=== PATIENT | male | born 1950 | race Caucasian/White ===

== ENCOUNTER → 2019-04-01 | Outpatient (CLI) | payer OTHER, MEDICARE ==
[2019-04-01 08:00] LABS: HEMATOCRIT 45.7 % (42.0-52.0); HEMOGLOBIN 15.4 gm/dL (14.0-18.0); MCH 30.6 pg (26.0-34.0); MCHC 33.6 g/dL (28.0-37.0); MCV 91.1 fL (80.0-100.0); RBC 5.02 mil/uL (4.50-6.00); RDW 12.7 % (10.5-14.5); WBC 6.4 thou/uL (4.0-11.0)
[2019-04-01 08:14] LABS: ALBUMIN 3.7 g/dL (3.4-5.0); CALCIUM 9.3 mg/dL (8.5-10.1); CREATININE 1.2 mg/dL (0.7-1.3); POTASSIUM 4.7 mmol/L (3.5-5.1); TOTAL BILIRUBIN 0.4 mg/dL (<0.1-1.0); TOTAL PROTEIN 6.6 g/dL (6.4-8.2)
== END ==
LOC: CAT 07:31
PROVIDERS: Internal Medicine Cardiovascular Disease
DX: I48.91 Unspecified atrial fibrillation (principal); I25.10 Atherosclerotic heart disease of native coronary artery without angina pectoris; K76.89 Other specified diseases of liver; K44.9 Diaphragmatic hernia without obstruction or gangrene

== ENCOUNTER → 2019-04-07 | Outpatient (CLI) | payer OTHER, MEDICARE ==
[~2019-04-07] MED LIST: COENZYME Q10100 MG PO; ELIQUIS5 MG PO; FISH OIL 1,001000 M3 PO; FLECAINIDE ACET50 M1 PO; HYDRALAZINE 5050 MG PO; LIPITOR40 MG PO; LOTREL 10-40 M1 EACH PO; PREVACID30 MG PO; TOPROL XL50 MG PO; VITAMIN D1000 UNI2 PO
--- NOTE | 2019-04-10 20:30 | SLE ---
[facility] [place] [address] POLYSOMNOGRAPHY STUDY Name: MELISSA CALVILLO Room #: REG [facility].#: [id number] Admission: 04/07/19 Attend Phys: Elmer Titus MD Discharge: Date of : 52 Report #: [id number] THIS REPORT FOR: //name// CC: Elmer Ludwig M.D. DATE OF SERVICE: 04/07/2019 SLEEP STUDY DATE OF STUDY: 04/07/2019. ATTENDING PHYSICIAN: Dr. Asim Ludwig. The patient is 68 years old who, who weighs 205 pounds with a BMI of 28.6. The patient's Hesston score was 5. The patient underwent diagnostic sleep study performed at [facility]. During the night study, the patient spent 364 minutes in bed and slept for 255 minutes with a sleep efficiency of 70%. Sleep latency was 18.7 minutes with a REM latency of 92 minutes. Sleep architecture showed increased stage 1 and stage 2 sleep, reduced slow wave and reduced REM sleep. During the night of the study, the patient had 14 obstructive apneas, 34 mixed apneas, and 13 central apneas along with 12 hypopneas. The patient's apnea hypopnea index was 17.2 per hour with a REM index of 13.8 per hour and a supine index of 63 per hour. EKG monitoring revealed an average heart rate of 70 beats per minute. The rhythm appeared to be atrial flutter fib pattern with a maximum heart rate of 109 beats per minute. No clinically significant PLM seen. Nocturnal oximetry study revealed an average oxygen saturation of 91% with a lowest of 81%. Thirty minutes were spent in oxygen saturation of less than 89%. The patient did meet the split night criteria for CPAP initiation, but it was late in the night. As a result, CPAP could not be initiated. IMPRESSION: 1. Moderate sleep apnea-hypopnea syndrome with worsening during supine sleep. Total AHI of 17.2 per hour with a supine AHI of 63 per hour. [facility] [address] [place] [address] POLYSOMNOGRAPHY STUDY Name: RAJINDERMELISSA Room #: REG ROLF [place]ering#: [id number] Admission: 04/07/19 Attend Phys: Elmer Titus MD Discharge: Date of : 52 Report #: [id number] 2. Nocturnal hypoxia secondary to obstructive sleep apnea. 3. Abnormal EKG consistent with atrial flutter/ fib pattern. RECOMMENDATIONS: 1. The patient would benefit from treatment of sleep apnea with CPAP. This can be done as an in-lab versus home auto-titration study. 2. Once the patient is optimally treated with CPAP, then follow up in 4-6 weeks to assess compliance with CPAP and to document clinical improvement. 3. Weight loss to the ideal body weight is recommended. 4. Avoid MANAGER SECONDARY depressants. 5. Avoid supine sleep. 6. Cautioned regarding driving until symptoms of sleep apnea resolve with the use of CPAP. 7. Follow up with Cardiology regarding abnormal EKG if clinically indicated. <ELECTRONICALLY SIGNED> By: Elmer Titus MD 04/10/19 2030 1755 1814 Elmer Titus MD /nt
== END ==
LOC: SLEEPLAB
DX: G47.30 Sleep apnea, unspecified (principal); G47.34 Idiopathic sleep related nonobstructive alveolar hypoventilation

== ENCOUNTER → 2019-04-12 | Outpatient (CLI) | payer OTHER, MEDICARE ==
[~2019-04-12] VITALS: Ht 180.3 cm; Wt 95.3 kg
[~2019-04-12] MED LIST changes: -PREVACID30 MG PO
[2019-04-12 07:10] VITALS: BP 143/86
--- NOTE | 2019-04-12 09:01 | TEE ---
[place] [address] [facility] 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 Type of Sedation : Conscious Sedation Sedation was administered by Rhina DEJESUS. Sedation was achieved intravenously with: Versed (4 mg) Fentanyl (150 mcg) Transesophageal probe was inserted and advanced into esophagus without difficulty by Wenceslao Fields MD. Echo enhancement indication: R/O Septal defect. Echo enhancement agent administered: Agitated Saline The KIM was performed without complications. Throughout the procedure, the blood pressure, pulse oximetry, cardiac rhythm, and rate were monitored. The patient tolerated the procedure without adverse effects. Recovery from conscious sedation was uneventful and vital signs were stable. Left Ventricle [facility] [address] [place] [address] TRANSESOPHAGEAL ECHOCARDIOGRAM Name: MELISSA CALVILLO Room #: REG CL [facility].#: [id number] Admission: 04/12/19 Attend Phys: Wenceslao Fields, Discharge: Date of : 52 Report #: [id number] The left ventricle is normal size. There is normal LV segmental wall motion. There is normal left ventricular wall thickness. The left ventricular systolic function is normal. The left ventricular ejection fraction is within the normal range. LVEF is 55-60%. Right Ventricle The right ventricle is normal size. The right ventricular systolic function is normal. Atria Left atrium is dilated. No thrombus is visualized in the left atrium or appendage. No shunting by contrast bubble injection Right atrium is dilated. Aortic Valve The aortic valve is normal in structure. No aortic regurgitation is present. There is no aortic valvular stenosis. Mitral Valve The mitral valve is normal in structure. Mild mitral regurgitation. No evidence of mitral valve stenosis. Tricuspid Valve The tricuspid valve is normal in structure. Mild tricuspid regurgitation. Pulmonic Valve The pulmonary valve is normal in structure. There is no pulmonic valvular regurgitation. Great Vessels The aortic root is normal in size. Mild aortic atherosclerosis IVC is normal in size and collapses >50% with inspiration. Pericardium There is no pericardial effusion. <Conclusion> The left ventricular systolic function is normal. There is normal LV segmental wall motion. LVEF is 55-60%. Both atria are dilated. No thrombus is visualized in the left atrium or appendage. No shunting by contrast bubble injection The aortic valve is normal in structure. No aortic regurgitation or [facility] [address] [place] [address] TRANSESOPHAGEAL ECHOCARDIOGRAM Name: MELISSA CALVILLO Room #: REG CL [facility].#: [id number] Admission: 04/12/19 Attend Phys: Wenceslao Fields, Discharge: Date of : 52 Report #: [id number] stenosis. The mitral valve is normal in structure. Mild mitral regurgitation. There is no pericardial effusion. <ELECTRONICALLY SIGNED> By: Wenceslao Fields MD, [facility] 04/12/19900 0 0 Wenceslao Fields MD, [facility] /INF
== END | disposition home or self-care (01) ==
LOC: CATH
DX: I48.91 Unspecified atrial fibrillation (principal); I08.1 Rheumatic disorders of both mitral and tricuspid valves; I70.0 Atherosclerosis of aorta; I42.9 Cardiomyopathy, unspecified; I10 Essential (primary) hypertension; E78.5 Hyperlipidemia, unspecified; K21.9 Gastro-esophageal reflux disease without esophagitis; Z98.890 Other specified postprocedural states; Z79.01 Long term (current) use of anticoagulants; Z79.899 Other long term (current) drug therapy

== ENCOUNTER 2019-04-20 06:28 | Inpatient (IN) | payer OTHER, MEDICARE ==
[~2019-04-20] VITALS: Ht 180.3 cm; Wt 96.7 kg
[2019-04-20] VITALS (33 sets, daily range): BP systolic 101–151; BP diastolic 46–91
[~2019-04-20 06:28] MED LIST changes: -FISH OIL 1,001000 M3 PO
[2019-04-20 07:18] LABS: ABSOLUTE NEUTROPHILS 3.8 thou/uL (1.4-8.2); BASOPHILS 1.2 % (0.0-2.0); EOSINOPHILS 1.8 % (0.0-3.0); HEMATOCRIT 44.7 % (42.0-52.0); LYMPHOCYTES 19.3 % (24.0-44.0); MCH 30.4 pg (26.0-34.0); MCHC 33.6 g/dL (28.0-37.0); MCV 90.5 fL (80.0-100.0); MONOCYTES 11.2 % (1.0-8.0); PLATELET COUNT 282 thou/uL (150-400); POLYS 66.5 % (36.0-66.0); RBC 4.94 mil/uL (4.50-6.00); RDW 13.4 % (10.5-14.5); WBC 5.7 thou/uL (4.0-11.0)
[2019-04-20 07:23] LABS: CREATININE 1.3 mg/dL (0.7-1.3); POTASSIUM 4.2 mmol/L (3.5-5.1)
[2019-04-20 07:29] LABS: ALBUMIN 3.8 g/dL (3.4-5.0); TOTAL BILIRUBIN 0.6 mg/dL (<0.1-1.0)
[2019-04-20 07:36] LABS: APTT 30.3 Seconds (24.5-32.8); PROTIME 10.7 Seconds (9.3-11.4)
--- NOTE | 2019-04-20 14:33 | NUR ---
68 YEAR OLD MALE ADMITTED TO ICU ROOM 236 POST ABLATION FOR AFIB WITH SINUS PAUSES, JUNCTIONAL RHYTHM AND SB AT 1400. ASSESSMENT COMPLETED.
--- NOTE | 2019-04-20 18:20 | NUR ---
PT IS DROWSY AND SLEEPING WITH SEDATION DRUGS OF PRECEDIX AND VERSED. REAMAINS CALM WITH THOSE. LUNGS ARE COARSE REMAINS ON THE VENT TODAY. ABDOMEN IS ROUND BOWEL SOUNDS HYPOACTIVE. NO BM TODAY. HOLLIDAY TO DD WITH LUIS URINE PRESENT. BARIER CREAM TO COCCYX. BILATERAL WRIST RESTRAINTS IN PLACE WITH NURSING CARE SO NOT TO COMPROMIS MEDICAL TREATEMENT. WILL CONTINUE ONGOING NURSING SUPPORT NEEDED AT THIS TIME
--- NOTE | 2019-04-20 19:00 | NUR ---
PATIENT PROGRESSING, GROIN SITE INTACT WITH NEURO VASCULAR STATUS OF RLE INTACT. MONITOR SHOWS NSR WITH RARE PAC NO PAUSES NOTED. PATIENT UPDATED TO THE POC AND REASSURANCE GIVEN.
[2019-04-21] VITALS (10 sets, daily range): BP systolic 104–174; BP diastolic 50–81
--- NOTE | 2019-04-21 05:15 | NUR ---
A0X4. ON 2L NC. NO SIGNS OF DISTRESS AT REST. MEDICATED FOR PAIN RELEIF. AFEBRILE. VSS. RIGHT GROIN SITE DRESSING C/D/I. NO BLEEDING OR HEMATOMA NOTED ON RIGHT GROIN. UP WITH ISABELBY ASSIST. PT CONTINUES TO PROGRESS TOWARDS GOAL. WILL CONTINUE TO MONITOR.
[2019-04-21] MEDS ORDERED: FISH OIL 1,001000 M3 PO (07:57)
[2019-04-21] MEDS ORDERED: PREVACID30 MG PO (10:22)
--- NOTE | 2019-04-21 10:45 | NUR ---
PT DISCHARGED TAKEN OUT VIA WHEEL CHAIR AND VERBALIZES UNDERSTANDING OF DISCHARGE INSTRUCTIONS GIVEN TO PT. SPOUSE WITH PT FOR SUPPORT. NO ISSUES OR CONCERNS NOTED AT THIS TIME. WILL FOLLOW UP ON HIS APPOINTMENTS PER CARDIOLOGY
--- NOTE | 2019-04-21 17:35 | EKG ---
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 : 1950 Requested By: Michelle Hernandez Order Number: [id number] MD: Wenceslao Fields Measurements Intervals [place] Rate: 64 P: 67 SC: 140 QRS: 27 QRSD: 97 T: 87 QT: 526 QTc: 543 Interpretive Statements Sinus rhythm Atrial premature complex RSR' in V1 or V2, right VCD Nonspecific ST and T wave abnormality Prolonged QT interval No previous ECG available for comparison Electronically Signed On 04-21-2019 17:35:32 MANGLE CATCHER by Wenceslao Fields [email or web address] <ELECTRONICALLY SIGNED> By: Wenceslao Fields MD, [facility] 04/21/19 5713 0710 0710 Wenceslao Fields MD, [facility] /EPI
--- NOTE | 2019-04-22 11:23 | D ---
[facility] [place] [address] DISCHARGE SUMMARY Name: MELISSA CALVILLO Room #: 236-P [facility] IN M.R.#: [id number] Admission: 04/20/19 Attend Phys: Yandel Mcqueen MD Discharge: 04/21/19 Date of : 52 Report #: [id number] THIS REPORT FOR: //name// CC: Asim Mcqueen [facility] Physician staff DISCHARGE DIAGNOSES: 1. Atrial fibrillation. 2. Sick sinus syndrome. PROCEDURES PERFORMED: AFib ablation. HISTORY: The patient is a 68-year-old with history of recurrent AFib despite antiarrhythmic drugs, here for an ablation. He underwent successful AFib ablation with no complications. However, after cardioversion, he did have a prolonged pause, which required me to pace the patient for several minutes. He also had a long sinus node recovery time anywhere from 3-6 seconds. Prior to extubating him, I placed him on dopamine, which got his rates from 30 beats per minute up to 60 beats per minute and once he was extubated, his heart rate improved and we weaned him off of dopamine. However, given the evidence of sick sinus syndrome, I decided to place him in the ICU for closer monitoring, but no temporary wire was required. HOSPITAL COURSE: The patient was monitored in the ICU overnight and did very well. His heart rates remained perfect throughout the night without any pauses. On the day of discharge, he was doing well. He denied any fevers or chills, chest pain or shortness of breath. PHYSICAL EXAMINATION: GENERAL: He was in no acute distress. HEART: Regular rate and rhythm with no murmurs, rubs or gallops. LUNGS: Clear to auscultation. EXTREMITIES: His groins showed no significant bruising or hematoma. As mentioned above, on telemetry his rhythm was stable. As such, he was deemed stable for discharge home and no need for pacemaker implantation would be required during this hospitalization. As such, he will go home on his Eliquis. We will hold off on resuming beta ritesh therapy and flecainide therapy. He will follow up in 1 week with my nurse practitioner. We discussed that if he starts having recurrent atrial fibrillation and antiarrhythmic drugs are warranted, then we may need to discuss placement of a pacemaker prior to that, but hopefully with the ablation, he would not have any more AFib and we can stay [facility] [address] [place] [address] DISCHARGE SUMMARY Name: MELISSA CALVILLO Room #: 236-P DIS IN M.R.#: [id number] Admission: 04/20/19 Attend Phys: Yandel Mcqueen MD Discharge: 04/21/19 Date of : 52 Report #: [id number] off of metoprolol and antiarrhythmic drugs for the foreseeable future. Discharge instructions were reviewed. <ELECTRONICALLY SIGNED> By: Yandel Mcqueen MD 04/22/19 1123 0829 0837 Yandel Mcqueen MD /lisa
--- NOTE | 2019-04-28 13:41 | P ---
[facility] [place] [address] [place] [address] PROCEDURE REPORT Name: MELISSA CALVILLO Room #: 236-P [facility] IN M.R.#: [id number] Admission: 04/20/19 Attend Phys: Yanedl Mcqueen MD Discharge: 04/21/19 Date of : 52 Report #: [id number] THIS REPORT FOR: //name// CC: Asim Mcqueen [facility] Physician staff PREOPERATIVE DIAGNOSIS: Atrial fibrillation. POSTOPERATIVE DIAGNOSIS: Atrial fibrillation. PROCEDURES PERFORMED: 1. Atrial fibrillation ablation, CPT code 12830. 2. Program stimulation pacing after IV drug infusion, CPT code 62030. 3. 3D mapping, CPT code 16661. 4. Intracardiac echo, CPT code 98014. 5. Focal ablation, CPT code 74928. HISTORY: The patient is a 68-year-old with history of recurrent AFib despite antiarrhythmic drugs. He is here for ablation. ANESTHESIA: The patient underwent general anesthesia with no anesthesia related complications. DESCRIPTION OF PROCEDURE: The patient underwent informed consent. We discussed the details of the procedure including the risks, which include but not limited to bleeding, infection, vascular damage and cardiac perforation. He understood these risks and is willing to proceed. The patient was brought to the EP laboratory in a fasting and sedated state, prepped and draped in a sterile fashion. I obtained access to the right femoral vein x 3, placing an 8, 9 and 7-Australian short sheath using the modified Seldinger technique. At baseline, the patient was in atrial fibrillation with a ventricular cycle length of 745 milliseconds, QRS duration 88 milliseconds, QT interval 385 milliseconds. Under fluoroscopy, a decapolar catheter was placed in the coronary sinus and ICE catheter was placed into the right atrium. Next, using intracardiac ultrasound, a 3D geometry of the left atrium was created using [employer]. This was merged with his cardiac CT scan. He had evidence of 2 left and 2 right pulmonary veins. The patient was then systemically heparinized and transseptal was performed using a Valier needle and SL1 sheath. This was straightforward and I placed the wire into the left superior pulmonary vein and then exchanged for the cryo sheath. Cryoballoon was placed in the left atrium. Next, I started by isolating the left superior pulmonary vein. This vein underwent two 4-minute freezes and the vein isolated within 30 seconds of the second freeze. I then turned my attention to the left inferior pulmonary vein. This vein also underwent two 4-minute freezes and the vein isolated [address] [address] PROCEDURE REPORT Name: MELISSA CALVILLO Room #: 236-P [facility] IN [facility].#: [id number] Admission: 04/20/19 Attend Phys: Yandel Mcqueen MD Discharge: 04/21/19 Date of : 52 Report #: [id number] within 24 seconds of the second freeze. I then turned my attention to the right superior pulmonary vein. Phrenic nerve pacing was performed using the decapolar catheter placed at the subclavian vessel. My initial freeze was only of 90 seconds duration as the temperatures were -50 degrees I came off. I then performed a second freeze, which was of 4 minutes' duration and post-ablation, the vein appeared to be isolated. I then turned my attention to the right inferior pulmonary vein. This vessel underwent a 220 second freeze followed by 180 second freeze. After these 2 freezes, the vein appeared to be isolated. I then went ahead and performed a posterior roofline. I performed 4 freezes anchored from the left superior pulmonary vein and 3 freezes anchored from the right superior pulmonary vein. Esophageal temperatures were monitored and there was never any compromise. I then performed a voltage map of the left atrium and there was still signals noted along the posterior roof region. I performed 2 additional ablation lesions using the cryoballoon at this location and remap showed that this appeared to be improved. At this point, a cardioversion was performed and after cardioversion, the patient had a prolonged conversion pause of around 5-10 seconds. Therefore, I performed pacing. After pacing for a few minutes, I came off pacing and his heart rates were in the 30s to 40s. I then checked the sinus node recovery time. Pacing at 600 milliseconds, the patient had a 3 point second pause, his sinus node recovery time after pacing at 500 milliseconds per minute was 6 seconds in duration. The patient was started on dopamine and additional pacing was performed. AV block was noted at 460 milliseconds. The patient remained on dopamine at 5 mcg per minute and his heart rates improved to around 60 beats per minute. I therefore left the CS catheter in place while the patient was awakened from sedation. 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 So we weaned him off this and his heart rates improved to around 60-70 beats per minute. At this point, I decided to pull the decapolar catheter and pull all his sheaths. The patient received systemic protamine and once ACT was within acceptable range, all sheaths were pulled. The patient left the EP laboratory in stable condition and with a good pulse. CONCLUSIONS: 1. Successful AFib ablation with isolation of the pulmonary veins. 2. Successful posterior roofline ablation. 3. Evidence of sick sinus syndrome. PLAN: The patient will be closely monitored overnight in the ICU given his evidence of sick sinus syndrome. He will remain n.p.o. If the patient were to demonstrate a sick sinus syndrome overnight and may potentially need a pacemaker implantation. <ELECTRONICALLY SIGNED> By: Yandel Mcqueen MD 04/28/19 1341 1116 1355 Yandel Mcqueen MD /nt
== END 2019-04-21 10:45 | disposition home or self-care (01) | DRG 274 ==
LOC: CATH → TBACV 11:58 → ICU 11:58 → CATH 12:30 → ICU 14:30
PROVIDERS: ADMIT Internal Medicine Cardiovascular Disease
PROC: 02583ZZ Destruction of Conduction Mechanism, Percutaneous Approach (ICD-10-PCS; principal; 2019-04-20)
DX: I48.0 Paroxysmal atrial fibrillation (principal); I49.5 Sick sinus syndrome; I10 Essential (primary) hypertension; I48.4 Atypical atrial flutter; E78.5 Hyperlipidemia, unspecified; Z96.659 Presence of unspecified artificial knee joint; Z87.891 Personal history of nicotine dependence; Z79.899 Other long term (current) drug therapy
CPT/HCPCS: 10078; 62110; 62900; 65020; 65040; 70005

== ENCOUNTER → 2019-07-20 | Outpatient (CLI) | payer OTHER, MEDICARE ==
[~2019-07-20] MED LIST changes: +FISH OIL 1,001000 M3 PO; +PREVACID30 MG PO
== END ==
LOC: SJCVC 15:30
DX: R94.31 Abnormal electrocardiogram [ECG] [EKG] (principal); I48.0 Paroxysmal atrial fibrillation; I49.5 Sick sinus syndrome; I10 Essential (primary) hypertension; E78.5 Hyperlipidemia, unspecified; Z79.899 Other long term (current) drug therapy

== ENCOUNTER → 2019-10-25 | Outpatient (CLI) | payer OTHER, MEDICARE | LOC: SJCVC 12:57 | PROVIDERS: ATTEND Internal Medicine Cardiovascular Disease | DX: R94.31 Abnormal electrocardiogram [ECG] [EKG] (principal); I48.0 Paroxysmal atrial fibrillation; R00.1 Bradycardia, unspecified; I10 Essential (primary) hypertension; E78.5 Hyperlipidemia, unspecified; Z79.899 Other long term (current) drug therapy; Z87.891 Personal history of nicotine dependence ==

== ENCOUNTER → 2020-03-30 | Outpatient (CLI) | payer OTHER | LOC: CAT 10:17 | PROVIDERS: ATTEND Internal Medicine Cardiovascular Disease | DX: Z13.6 Encounter for screening for cardiovascular disorders (principal); I25.10 Atherosclerotic heart disease of native coronary artery without angina pectoris; E78.00 Pure hypercholesterolemia, unspecified ==

== ENCOUNTER → 2020-04-25 | Outpatient (CLI) | payer OTHER, MEDICARE | LOC: SJCVC 13:51 | PROVIDERS: ATTEND Internal Medicine Cardiovascular Disease | DX: R94.31 Abnormal electrocardiogram [ECG] [EKG] (principal); I48.0 Paroxysmal atrial fibrillation; I10 Essential (primary) hypertension; E78.5 Hyperlipidemia, unspecified; Z79.899 Other long term (current) drug therapy; Z87.891 Personal history of nicotine dependence ==

== ENCOUNTER → 2020-12-20 | Outpatient (CLI) | payer OTHER, MEDICARE | LOC: SJCVC 13:35 | PROVIDERS: ATTEND Internal Medicine Cardiovascular Disease | DX: I49.1 Atrial premature depolarization (principal); I48.0 Paroxysmal atrial fibrillation; I10 Essential (primary) hypertension; I25.118 Atherosclerotic heart disease of native coronary artery with other forms of angina pectoris; E78.5 Hyperlipidemia, unspecified; D68.59 Other primary thrombophilia; G47.33 Obstructive sleep apnea (adult) (pediatric); E78.00 Pure hypercholesterolemia, unspecified; Z98.890 Other specified postprocedural states; Z79.82 Long term (current) use of aspirin; Z79.899 Other long term (current) drug therapy; Z87.891 Personal history of nicotine dependence; Z86.79 Personal history of other diseases of the circulatory system; Z82.49 Family history of ischemic heart disease and other diseases of the circulatory system ==

== ENCOUNTER → 2021-06-26 | Outpatient (CLI) | payer OTHER, MEDICARE | LOC: SJCVC 10:31 | PROVIDERS: ATTEND Internal Medicine Cardiovascular Disease | DX: R94.31 Abnormal electrocardiogram [ECG] [EKG] (principal); I45.10 Unspecified right bundle-branch block; I10 Essential (primary) hypertension; I25.118 Atherosclerotic heart disease of native coronary artery with other forms of angina pectoris; E78.5 Hyperlipidemia, unspecified; G47.33 Obstructive sleep apnea (adult) (pediatric); Z98.890 Other specified postprocedural states; Z86.79 Personal history of other diseases of the circulatory system; Z79.82 Long term (current) use of aspirin; Z79.899 Other long term (current) drug therapy; Z87.891 Personal history of nicotine dependence; Z72.89 Other problems related to lifestyle ==